=== PATIENT | female | born 1980 | race Caucasian/White ===

== ENCOUNTER 2016-08-30 10:24 | Emergency (ER) | payer MEDICAID, OTHER ==
[~2016-08-30] VITALS: Ht 160 cm; Wt 75.0 kg
[2016-08-30 10:25] VITALS: BP 148/72; PULSE 116; RESP 20; TEMP 101.4; O2SAT 100
[2016-08-30] MEDS ORDERED: LISI-519 PO (10:43)
[2016-08-30] MEDS ORDERED: SOMA350T PO (10:43)
[2016-08-30] MEDS ORDERED: GABA300C5 PO (10:43)
[2016-08-30] MEDS ORDERED: ULTR50TA5 PO (10:43)
[2016-08-30] MEDS ORDERED: ALPR1TAB3 PO (10:43)
[2016-08-30 10:44] VITALS: BP 126/58; PULSE 114; RESP 16; O2SAT 99
[2016-08-30] MEDS ORDERED: SODIUM CHLOR 0.9% 1000 ML INJ 1,000 ML IV SCH ×2 (11:01)
--- NOTE | 2016-08-30 11:05 | PD ---
HPI Chief Complaint: Pain: Acute or Chronic Time Seen by Provider: 10:58 Travel History International Travel<30 days: No Contact w/Intl Traveler<30days: No Traveled to known affect area: No History of Present Illness HPI This is a 36-year-old female with history of chronic lower back pain, occasional anxiety, presents for evaluation of arthralgias and myalgias. She reports over the past week she has had multiple episodes of diarrhea on a daily basis. She reports that her son had similar symptoms when she picked him up from his father's house. The sons diarrhea seems to have resolved. The patient continues to have multiple episodes of diarrhea, worse when she attempts to eat. She reports that she has had a decreased appetite as well as nausea, very occasional vomiting. She will Today with severe arthralgias and myalgias which prompted evaluation. She is found to be febrile and tachycardic in triage. She does endorse some epigastric and upper quadrant abdominal pain with no obvious alleviating factors, aggravated by palpation. Denies any cough , congestion, sore throat, ear pain, neck stiffness, rash, recent travel, dysuria, flank pain. Denies any recent antibiotic use. Denies any history of IV drug abuse. She has no other complaints at this time. FORMERLY [facility] Past Medical History Anxiety: Yes Hypertension: Yes Influenza Vaccination: Yes ?: Not LMP: NONE; iud Dilation and Curettage (D&C): Yes Past Surgical History Tonsillectomy: Yes Social History Alcohol Use: No Tobacco Use: No Substance Use: No Allergies-Medications (Allergen,Severity, Reaction): Coded Allergies: No Known Allergies (Unverified , 08/30/16) Reported Meds & Prescriptions Reported Meds & Active Scripts Active Reported Lisinopril 5 Mg Tab 5 Mg PO BID Alprazolam 1 Mg Tab 1 Mg PO TID PRN Ultram (Tramadol HCl) 50 Mg Tab 100 Mg PO Q6H PRN Soma (Carisoprodol) 350 Mg Tab 350 Mg PO TID PRN Gabapentin 300 Mg Cap 300 Mg PO TID Review of Systems Except as stated in HPI: all other systems reviewed are Neg Physical Exam Narrative GENERAL: Well-developed well-nourished female in no acute distress. Vital signs reviewed. Febrile, tachycardic. SKIN: Warm and dry. No obvious rash. There is a bruise to the medial right calf, the patient reports that she is only bruised easily. No other bruises are noted. No petechiae or purpura. HEAD: Atraumatic. Normocephalic. EYES: Pupils equal and round. No scleral icterus. No injection or drainage. ENT: No nasal bleeding or discharge. Mucous membranes pink and moist. There is no oral pharyngeal erythema or exudate. NECK: Trachea midline. No JVD. No lymphadenopathy. Neck supple full range of motion. CARDIOVASCULAR: Regular rate and rhythm. No murmur appreciated. RESPIRATORY: No accessory muscle use. Clear to auscultation. Breath sounds equal bilaterally. GASTROINTESTINAL: Abdomen soft, epigastric/right upper quadrant tenderness without guarding. MUSCULOSKELETAL: No obvious deformities. No edema. NEUROLOGICAL: Awake and alert. No obvious cranial nerve deficits. Motor grossly within normal limits. Normal speech. Data Data Last Documented VS Vital Signs Date Time Temp Pulse Resp B/P Pulse Ox O2 Delivery O2 Flow Rate FiO2 08/30/16 10:44 114 16 126/58 99 Room Air 08/30/16 10:25 101.4 Orders Complete Blood Count With Diff (08/30/16 11:01) Comprehensive Metabolic Panel (08/30/16 11:01) Lactic Acid Sepsis Protocol (08/30/16 11:01) Lipase (08/30/16 11:01) Urinalysis - C+S If Indicated (08/30/16 11:01) Influenzae A/B Antigen (08/30/16 11:01) Blood Culture (08/30/16 11:01) Chest, Single Ap (08/30/16 11:01) Blood Glucose (08/30/16 11:01) Ecg Monitoring (08/30/16 11:01) Iv Access Insert/Monitor (08/30/16 11:01) Oximetry (08/30/16 11:01) Oxygen Administration (08/30/16 11:01) Ct Abd/Pel W Iv Contrast(Rout) (08/30/16 11:01) Ondansetron Inj (Zofran Inj) (08/30/16 11:15) Sodium Chlor 0.9% 1000 Ml Inj (Ns 1000 M (08/30/16 11:01) Ketorolac Inj (Toradol Inj) (08/30/16 11:15) Ed Urine Pregnancytest Poc (08/30/16 11:01) Sodium Chlor 0.9% 1000 Ml Inj (Ns 1000 M (08/30/16 11:01) C Diff Toxin Pcr (08/30/16 11:05) Enteric Path (Stool) (08/30/16 11:05) Potassium Chloride (Kcl) (08/30/16 12:45) Iohexol 350 Inj (Omnipaque 350 Inj) (08/30/16 13:28) Labs Laboratory Tests Test 08/30/16 08/30/16 11:30 12:05 White Blood Count 14.6 TH/MM3 Red Blood Count 4.74 MIL/MM3 Hemoglobin 13.5 GM/DL Hematocrit 39.7 % Mean Corpuscular Volume 83.7 FL Mean Corpuscular Hemoglobin 28.4 PG Mean Corpuscular Hemoglobin 33.9 % Concent Red Cell Distribution Width 13.5 % Platelet Count 267 TH/MM3 Mean Platelet Volume 8.1 FL Neutrophils (%) (Auto) 85.9 % Lymphocytes (%) (Auto) 6.1 % Monocytes (%) (Auto) 7.8 % Eosinophils (%) (Auto) 0.1 % Basophils (%) (Auto) 0.1 % Neutrophils # (Auto) 12.5 TH/MM3 Lymphocytes # (Auto) 0.9 TH/MM3 Monocytes # (Auto) 1.1 TH/MM3 Eosinophils # (Auto) 0.0 TH/MM3 Basophils # (Auto) 0.0 TH/MM3 CBC Comment DIFF FINAL Differential Comment Sodium Level 136 MEQ/L Potassium Level 3.3 MEQ/L Chloride Level 101 MEQ/L Carbon Dioxide Level 26.4 MEQ/L Anion Gap 9 MEQ/L Blood Urea Nitrogen 10 MG/DL Creatinine 0.82 MG/DL Estimat Glomerular Filtration 80 ML/MIN Rate Random Glucose 84 MG/DL Lactic Acid Level 1.2 mmol/L Calcium Level 9.2 MG/DL Total Bilirubin 0.5 MG/DL Aspartate Amino Transf 24 U/L (AST/SGOT) Alanine Aminotransferase 35 U/L (ALT/SGPT) Alkaline Phosphatase 68 U/L Total Protein 8.5 GM/DL Albumin 4.0 GM/DL Lipase 647 U/L Urine Color YELLOW Urine Turbidity CLEAR Urine pH 5.5 Urine Specific Bayard 1.012 Urine Protein NEG mg/dL Urine Glucose (UA) NEG mg/dL Urine Ketones 40 mg/dL Urine Occult Blood SMALL Urine Nitrite NEG Urine Bilirubin NEG Urine Urobilinogen LESS THAN 2.0 MG/DL Urine Leukocyte Esterase NEG Urine RBC LESS THAN 1 /hpf Urine WBC 2 /hpf Urine Squamous Epithelial 1 /hpf Cells Urine Mucus FEW /lpf Microscopic Urinalysis Comment CATH-CULT NOT IND MDM Medical Decision Making Medical Screen Exam Complete: Yes Emergency Medical Condition: Yes Medical Record Reviewed: Yes Differential Diagnosis Gastroenteritis, colitis, cholecystitis, influenza, dehydration, sepsis, meningitis, pneumonia, pyelonephritis Narrative Course 36-year-old female with 1 week history of diarrhea and decreased appetite. She presents today febrile, tachycardic with myalgias and arthralgias. On examination she has some upper abdominal tenderness to palpation. Physical examination is otherwise unremarkable with no meningeal signs. Plan is for lab work, chest x-ray, CT of the abdomen and pelvis. She will be given 2 L of IV fluids, Toradol, Zofran. Discussed with my attending agrees with plan of care. Lab work and imaging studies have been reviewed. The CBC count is mildly elevated at 14.6 with 85% neutrophils. Potassium is mildly low at 3.3, she was given a dose of oral potassium. Lipase was mildly elevated at 647. Lactic acid is within normal limits. Urinalysis reveals some ketones consistent with her history of dehydration. Chest x-ray is normal. CT of the abdomen reveals borderline prominent lymph nodes along the root of the mesentery extending out into the mesenteric leads. Nonspecific and possibly reactive. Radiologist recommends outpatient follow-up CT scan in 3 months to ensure stability. The patient was given a copy of her CT report with these recommendations. Likely her lymph node enlargement is reactive secondary to her history of diarrhea and likely the patient is suffering from a gastroenteritis. We did order stool cultures and C. difficile PCR however the patient was here for several hours and was unable to produce a bowel movement. Therefore the plan is to have her follow up closely with her primary care physician and return for any new or worsening symptoms. She is agreeable with this plan. Diagnosis Primary Impression: Gastroenteritis Additional Impressions: Febrile illness Pancreatitis Qualified Code: K85.90 - Acute pancreatitis, unspecified complication status, unspecified pancreatitis type Departure Forms: Tests/Procedures, Work Release Enter return to work date: Sep 01, 2016 Additional Instructions: Follow-up with your primary care physician closely. Stay well hydrated well- nourished. Tylenol or Motrin for fever. Return for any new or worsening symptoms. Med/Other Pt SpecificInfo: Prescription(s) given Scripts Ondansetron (Zofran)4 Mg Tab4 Mg PO Q6HR PRN (NAUSEA OR VOMITING) #15 TAB Ref 0 Prov:Moon Faulkner MD 08/30/16 Disposition: 01 DISCHARGE HOME Condition: Stable Pola Salinas Aug 30, 2016 11:05
[2016-08-30] MEDS ORDERED: KETOROLAC TROMETHAMINE 30 MG/ML (IVP) VIAL IVP ONE (11:15)
[2016-08-30] MEDS ORDERED: ONDANSETRON HCL 4 MG/2 ML VIAL IVP ONE (11:15)
[2016-08-30 11:52] LABS: AUTOMATED NEUTROPHIL # 12.5 TH/MM3 (1.8-7.7); BASOPHIL % 0.1 % (0.0-2.0); EOSINOPHIL % 0.1 % (0.0-4.0); HEMATOCRIT 39.7 % (35.0-46.0); HEMO FLAGS DIFF FINAL; LYMPH % 6.1 % (9.0-44.0); LYMPHOCYTE # 0.9 TH/MM3 (1.0-4.8); MEAN CELL VOLUME 83.7 FL (80.0-100.0); MEAN CORPUSCULAR HEMOGLOBIN 28.4 PG (27.0-34.0); MEAN CORPUSCULAR HGB CONC 33.9 % (32.0-36.0); MONO % 7.8 % (0.0-8.0); NEUT % 85.9 % (16.0-70.0); PLATELET COUNT 267 TH/MM3 (150-450); RED BLOOD COUNT 4.74 MIL/MM3 (4.00-5.30); RED CELL DISTRIBUTION WIDTH 13.5 % (11.6-17.2); WHITE BLOOD COUNT 14.6 TH/MM3 (4.0-11.0)
[2016-08-30 12:17] LABS: ALT (GPT) 35 U/L (10-53); ANION GAP 9 MEQ/L (5-15); AST (GOT) 24 U/L (15-37); BICARBONATE 26.4 MEQ/L (21.0-32.0); BLOOD UREA NITROGEN 10 MG/DL (7-18); CHLORIDE 101 MEQ/L (98-107); GLOMERULAR FILTRATION RATE 80 ML/MIN (>89); POTASSIUM 3.3 MEQ/L (3.5-5.1); SODIUM (NA) 136 MEQ/L (136-145)
[2016-08-30 12:19] LABS: ALKALINE PHOSPHATASE 68 U/L (45-117); TOTAL BILIRUBIN ADULT 0.5 MG/DL (0.2-1.0)
[2016-08-30 12:28] LABS: BLOOD, URINE SMALL (NEG); COMMENT (UR) CATH-CULT NOT IND; CULTURE IF INDICATED CATH CULTURE NOT IND; GLUCOSE,URINE NEG (NEG); KETONE, URINE 40 mg/dL (NEG); MUCUS URINE FEW /lpf (OCC); NITRITE,URINE NEG (NEG); PH, URINE 5.5 (5.0-8.5); SQUAMOUS EPITHELIAL CELL URINE 1 /hpf (0-5); URINE COLOR YELLOW (YELLW/STRAW)
[2016-08-30] MEDS ORDERED: POTASSIUM CHLORIDE 20 MEQ CONTROLLED RELEASE TAB PO ONE (12:45)
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
[2016-08-30] MEDS ORDERED: IOHEXOL 350 MG/ML 10 ML VIAL (for RAD DIAG) IV ONE (13:28)
--- NOTE | 2016-08-30 13:36 | RADRPT ---
EXAM DATE/TIME: 08/30/2016 13:09 [facility] COMPARISON: No previous studies available for comparison. INDICATIONS : Diffuse body pain with diarrhea and epigastric pain for 1 week. IV CONTRAST: 94 cc Omnipaque 350 (iohexol) IV ORAL CONTRAST: No oral contrast ingested. RADIATION DOSE: 9.03 CTDIvol (mGy) MEDICAL HISTORY : Hypertension. SURGICAL HISTORY : None. ENCOUNTER: Initial ACUITY: 1 week PAIN SCALE: 10/10 LOCATION: Bilateral upper quadrant TECHNIQUE: Volumetric scanning of the abdomen and pelvis was performed. Using automated exposure control and ad justment of the mA and/or kV according to patient size, radiation dose was kept as low as reasonably achievable to obtain optimal diagnostic quality images. FINDINGS: LOWER LUNGS: Minimal, bilateral dependent atelectatic changes., Left greater than right. LIVER: Homogeneous density without lesion. There is no dilation of the biliary tree. No calcified gallston es. SPLEEN: Normal size without lesion. PANCREAS: Within normal limits. KIDNEYS: Normal in size and shape. There is no mass, stone or hydronephrosis. ADRENAL GLANDS: Within normal limits. VASCULAR: There is no aortic aneurysm. 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 The left-sided component is diminutive, however. BOWEL/MESENTERY: The stomach, small bowel, and colon demonstrate no acute abnormality. There is no free intraperitone al air or fluid. However, there are some portal and prominent lymph nodes along the root of the mesen teetee extending out into the mesenteric leaves. This measures up to 1.4 cm in diameter. ABDOMINAL WALL: Within normal limits. RETROPERITONEUM: There is no lymphadenopathy. BLADDER: No wall thickening or mass. REPRODUCTIVE: IUD within the endometrial canal. 2 cm cyst associated with the right ovary. INGUINAL: There is no lymphadenopathy or hernia. MUSCULOSKELETAL: Within normal limits for patient age. CONCLUSION: 1. IUD appropriately positioned in the endometrial canal. Benign-appearing 2 cm cyst in the right ova ry. 2. Borderline prominent lymph nodes along the root of the mesentery extending out into the mesenteric leaves. These are nonspecific and possibly reactive measuring upwards of 1.4 cm in diameter. I would recommend a followup CT scan of the abdomen with IV contrast in 3 months to ensure stability, donald alcantara 3. Duplicated IVC. Colt Hurley MD on August 30, 2016 at 13:26 Board Certified Radiologist. This report was verified electronically.
[2016-08-30] MEDS ORDERED: ZOFR4TAB PO (13:47)
[2016-08-30 14:02] VITALS: RESP 18
== END 2016-08-30 14:51 | disposition home or self-care (01) ==
LOC: NEPA 10:24
DX: K52.9 Noninfective gastroenteritis and colitis, unspecified (principal); R50.9 Fever, unspecified; K85.90 Acute pancreatitis without necrosis or infection, unspecified; G89.29 Other chronic pain; R19.7 Diarrhea, unspecified; R11.2 Nausea with vomiting, unspecified; R10.13 Epigastric pain; I10 Essential (primary) hypertension
CPT/HCPCS: 71010; 74177; 80053; 81001; 83605; 83690; 84703; 85025; 87040; 87804; 96361; 96374; 96375; 99284; J1885; J2405; J7030; Q9967